=== PATIENT | female | born 1955 | race Caucasian/White ===

== ENCOUNTER 2017-08-02 12:41 | Emergency (ER) | payer MEDICAID ==
--- NOTE | 2017-08-02 13:21 | ED Physician Documentation ---
History of Present Illness - Stated complaint Stated Complaint: MED REFILL/BACK PX - Chief complaint Chief Complaint: General - History obtained from History obtained from: Patient - History of Present Illness Timing: Other (She has chronic pain from fibromyalgia, osteoarthritis, depression and anxiety. Just moved from [place] needs a refill on her medication. No acute complaints.) Review of Systems Constitutional: denies: Fever, Chills Cardiac: denies: Chest pain / pressure, Palpitations Respiratory: denies: Dyspnea, Cough PD PAST MEDICAL HISTORY - Present Medications Home Medications: Ambulatory Orders Medication Instructions Recorded Confirmed Acetaminophen/Cod 300/30 [Tylenol 1 tab PO TID 08/02/17 08/02/17 #3] Buspirone HCl 15 mg PO BID #60 tablet 08/02/17 Famotidine [Pepcid] 2 tab PO DAILY 08/02/17 08/02/17 Famotidine [Pepcid] 20 mg PO BID #60 tablet 08/02/17 Fluoxetine HCl [Prozac] 20 mg PO DAILY #30 capsule 08/02/17 Lisinopril 10 mg PO DAILY #30 tablet 08/02/17 Meloxicam 15 mg PO DAILY #30 tablet 08/02/17 Meloxicam [Mobic] 2 tab PO DAILY 08/02/17 08/02/17 Pregabalin [Lyrica] 1 tab PO DAILY 08/02/17 08/02/17 Pregabalin [Lyrica] 200 mg PO DAILY PM #30 capsule 08/02/17 busPIRone [Buspar] 2 tab PO DAILY 08/02/17 08/02/17 - Allergies Allergies/Adverse Reactions: Allergies Allergy/AdvReac Type Severity Reaction Status Date / Time morphine Allergy Anaphylaxis Verified 08/02/17 12:53 PD ED PE NORMAL - Vitals Vital signs reviewed: Yes - General General: Alert and oriented X 3, No acute distress - Derm Derm: Normal color, Warm and dry, No rash - Neuro Neuro: Alert and oriented X 3, Normal speech - Psych Psych: Normal mood, Normal affect Results - Vitals Vitals: Vital Signs - 24 hr 08/02/17 12:47 Temperature 36.2 C L Heart Rate 82 Respiratory 18 Rate Blood Pressure 125/80 O2 Saturation 99 Oxygen O2 Source Room air PD MEDICAL DECISION MAKING - ED course ED course: I discussed with her that I was willing to refill all of her medications with the exception of the codeine, it is inappropriate for us to refill chronic pain medications specifically narcotics from the emergency department. She was taking lisinopril 20 but I am going to cut that in half because her blood pressure is fine today and she has not been taking it. Departure - Departure Disposition: Home, Self Care Clinical Impression: Anxiety, Fibromyalgia, Medication refill Hypertension Qualifiers: Hypertension type: essential hypertension Qualified Code(s): I10 - Essential ( primary) hypertension Condition: Good Record reviewed to determine appropriate education?: Yes Follow-Up: [facility] [Provider Group] Prescriptions: Buspirone HCl 15 mg PO BID #60 tablet Famotidine [Pepcid] 20 mg PO BID #60 tablet Fluoxetine HCl [Prozac] 20 mg PO DAILY #30 capsule Lisinopril 10 mg PO DAILY #30 tablet Meloxicam 15 mg PO DAILY #30 tablet Pregabalin [Lyrica] 200 mg PO DAILY PM #30 capsule
[2017-08-02 13:43] VITALS: BP 111/85
== END 2017-08-02 13:41 | disposition home or self-care (01) ==
LOC: ED 12:41
DX: Z76.0 Encounter for issue of repeat prescription (principal); M79.7 Fibromyalgia; I10 Essential (primary) hypertension; F41.9 Anxiety disorder, unspecified; F32.9 Major depressive disorder, single episode, unspecified; M19.90 Unspecified osteoarthritis, unspecified site
CPT/HCPCS: 99281; 99283

== ENCOUNTER 2017-08-29 09:54 | Emergency (ER) | payer MEDICAID ==
[2017-08-29 10:04] VITALS: BP 153/108
--- NOTE | 2017-08-29 10:27 | ED Physician Documentation ---
History of Present Illness - Stated complaint Stated Complaint: MED REFILL - Chief complaint Chief Complaint: General - Additonal information Additional information: to ER to refill all her meds moved to [place] [address] has not extalblished with new PMD was referred to [facility] last time she came to ER but has not called because she does not have a phone no complaints - just needs refill Review of Systems Constitutional: denies: Fever, Chills Cardiac: denies: Chest pain / pressure Respiratory: denies: Dyspnea GI: denies: Abdominal Pain Endocrine: denies: Easy bruising / bleeding Immunocompromised: denies: Immunocompromised PD PAST MEDICAL HISTORY - Past Medical History Psych: Depression, Anxiety Musculoskeletal: Fibromyalgia - Present Medications Home Medications: Ambulatory Orders Medication Instructions Recorded Confirmed Albuterol Sulfate [Proair Hfa 1 - 2 puffs INH Q4H PRN #1 08/29/17 Inhaler] [email or web address] Famotidine [Pepcid] 20 mg PO BID #60 tablet 08/29/17 Fluoxetine HCl [Prozac] 20 mg PO DAILY #30 capsule 08/29/17 Lidocaine Patch 5% [Lidoderm Patch] 08/29/17 Lidocaine Patch 5% [Lidoderm Patch] 1 each TOP DAILY PRN #10 patch 08/29/17 Lisinopril 20 mg PO DAILY #30 tablet 08/29/17 Meloxicam 15 mg PO DAILY #30 tablet 08/29/17 Pentazocine HCl/Naloxone HCl 1 each PO 08/29/17 [Pentazocine-Naloxone Tablet] Pregabalin [Lyrica] 200 mg PO DAILY #30 capsule 08/29/17 busPIRone [Buspar] 2 tab PO BID #120 tablet 08/29/17 - Allergies Allergies/Adverse Reactions: Allergies Allergy/AdvReac Type Severity Reaction Status Date / Time morphine Allergy Anaphylaxis Verified 08/02/17 12:53 - Social History Does the pt smoke?: No Smoking Status: Never smoker Does the pt drink ETOH?: No Does the pt have substance abuse?: No - Immunizations Immunizations are current?: Yes PD ED PE NORMAL - Vitals Vital signs reviewed: Yes - Cardiac Cardiac: RRR - Respiratory Respiratory: No respiratory distress, Clear bilaterally - Neuro Neuro: Alert and oriented X 3 Results - Vitals Vitals: Vital Signs - 24 hr 08/29/17 10:01 Temperature 36.4 C L Heart Rate 60 Respiratory 22 Rate Blood Pressure 153/108 H O2 Saturation 100 Oxygen O2 Source Room air Departure - Departure Disposition: Home, Self Care Clinical Impression: Medication refill Condition: Good Follow-Up: [facility] [Provider Group] (September 19 check in 330, bring all your medications and records) Comments: I have refilled all your medications except the pentazocine which is a controlled substance Please carefully review the prescriptions to be certain they are exactly correct and the same as your previous prescriptions I returned your lisinopril dose to the20 mg that you used to be on because your blood pressure is high on the new 10 mg dose I also made you an appointment to establish care at [facility] to establish care - please make sure you get to that appointment
== END 2017-08-29 10:49 | disposition home or self-care (01) ==
LOC: ED 09:54
DX: Z76.0 Encounter for issue of repeat prescription (principal); I10 Essential (primary) hypertension
CPT/HCPCS: 99281; 99283